=== PATIENT | female | born 1955 | race Caucasian/White ===

== ENCOUNTER → 2020-03-07 08:27 | Outpatient (CLI) | payer OTHER, SELFPAY | PROVIDERS: PCP Family Medicine; Visit Provider Internal Medicine | DX: Z11.52 Encounter for screening for COVID-19 (principal) | CPT/HCPCS: U0003 ==

== ENCOUNTER 2023-09-15 19:04 | Inpatient (IN) | payer OTHER, MEDICARE, SELFPAY ==
[2023-09-15 19:13] VITALS: BP 177/87; PULSE 102; RESP 16; TEMP 36.8; O2SAT 96; BMI 30.7
--- OUTSIDE RECORDS SUMMARY | 2023-09-15 19:19 | XMS_ITS | Continuity of Care Document ---
Author Name Unknown Organization [facility] Address [address] [place] [address] Phone Care Team Providers Care Senior Software Qa Analyst Name Role Phone No Information Unavailable Unavailable Allergies, Adverse Reactions, Alerts Substance Reaction Status Criticality NITROFURANTOIN MACROCRYSTALLINE Active No Information Sulfa (Sulfonamide Antibiotics) Active No Information Penicillins Active No Information Medications Medication Instructions Dosage Effective Dates (start - stop) Status Comments No Drug Therapy Prescribed Procedures Procedure Date Physical Tx excercises, ea 15 min Neuromuscular re-edu, ea15 min 19 Physical Tx excercises, ea 15 min Neuromuscular re-edu, ea15 min 19 PT RE-EVAL EST PLAN CARE Physical Tx excercises, ea 15 min Neuromuscular re-edu, ea15 min 19 Physical Tx excercises, ea 15 min Neuromuscular re-edu, ea15 min 19 Manual therapy 1+ regions, ea 15 mn Physical Tx excercises, ea 15 min Neuromuscular re-edu, ea15 min 19 Office/outpatient visit,est, low 2018 X-ray exam of knee, 1 or2 views 019 Physical Tx excercises, ea 15 min Neuromuscular re-edu, ea15 min 19 PT EVAL LOW COMPLEX 20 MIN Neuromuscular re-edu, ea15 min 19 Manual therapy 1+ regions, ea 15 mn Office/outpatient visit,new, mod 2018 MRI Lwr Ext Joint wo Contrast 9 Office/outpatient visit,day [facility] 2018 X-ray exam of knee, 4+ views Breg Crossover/Short Run w Gino 019 Crutch underarm pair no wood Advance Directives Directive Yes / No Effective Date File Name No Information Encounters Encounter Description Practice Location Reason(s) For Visit Diagnoses Date Provider Providers Copied on Encounter [facility] [address], [facility], tel:[phone] No Information 2 No Information [facility] [address], [facility], tel:[phone] [facility] Sprain of unspecified ligament of right ankle, init encntrPain in right ankle and joints of right foot 2 Meng Carpenter. [address] [place] [address], [id number]. tel:[phone] Referring Provider: Jayden Butt, [address] [place], [address] . tel:[phone] [facility] [address], [facility], tel:[phone] [facility] No Information 9 Gauri Patterson. [address] [place], [place], [facility], . tel:[phone] Referring Provider: Jayden Butt, [address] [place], [address] . tel:[phone] [facility] [address], [facility], tel:[phone] [facility] No Information 9 Gauri Patterson. [address] [place], [place], [facility], . tel:[phone] Referring Provider: Jayden Butt, [address], [place], [address] . tel:[phone] [facility] [place], [address], [place], [facility], tel:[phone] [facility] No Information Mar-2 1-201 9 Blairhn Yesenia. [address] [place], [place], [facility], . tel:[phone] Referring Provider: Jayden Butt, [address], [place], [address] . tel:[phone] [facility], [address], [place], [facility], tel:[phone] [facility] No Information Mar-1 4-201 9 Gauri Yesenia. [address] [place], [place], [facility], . tel:[phone] Referring Provider: Jayden Fan Daquan, [address], [place], [address] . tel:[phone] [facility], [address], [place], [facility], tel:[phone] [facility] No Information Mar-0 7-201 9 Gauri Yesenia. [address] [place], [address], . tel:[phone] Referring Provider: Jayden Butt, [address], [place], [address] . tel:[phone] Office/outpat ient visit,est, low [facility], [address], [place], [facility], [place] tel:[phone] [facility] No Information Mar-0 1-201 9 Meng Carpenter. [address], [place], [place], [id number]. tel:[phone] [facility], [address], [place], [address], [place] tel:[phone] [facility] No Information Blairjustyna Yesenia. [address] [place] [address], [facility], . tel:[phone] Referring Provider: Jayden Butt, [address], [place], [address] . tel:[phone] [facility], [address], [place], [facility], tel:[phone] [facility] No Information Blairjustyna Yesenia. [address] [place] [address], [facility], . tel:[phone] Referring Provider: Jayden Butt, [address], [facility], [address] . tel:[phone] Office/outpat ient visit,[facility], [facility], [address], [place], [facility], [place] tel:[phone] [address] [place] [address] No Information 9 Meng Carpenter. [address], [place], [place], [id number]. tel:[phone] Referring Provider: Michael Jaramillo, [address] [place] [address], [facility]. tel:[phone] [facility], [address], [place], [facility], [place] tel:[phone] [facility] No Information 9 Severo Rodriguez. [address], [place], [place], [id number], [place]. tel:[phone] Referring Provider: Michael Trujillo, [address], [facility], [address] . tel:[phone] Office/outpat ient visit,new, [facility], [address], [place], [address], [place] tel:[phone] 700 [facility] No Information 9 Clint Rodriguez. [address] [facility], [place], [address], [place]. tel:[phone] [facility], [address] [place], [address], [place] tel:[phone] [facility] No Information 9 Severo Rodriguez. [address], [place], [id number], [place]. tel:[phone] Family History Family Member Type Diagnosis Age At Onset Mother Problem (finding) hypertension Mother Problem (finding) Cancer, unknown Father Problem (finding) Heart disease Payers Payer name Insurance type Covered libertarian ID Glo walden(s) C [id number] Social History Type Description Quantity Date Captured Comments Sex Female Smoking Status No Information Chief Complaint And Reason For Visit No Information Reason For Referral Reason For Referral No Information Plan Of Treatment Date Type Action Status Future Order: Radiology Order MR I Knee WO Contrast ([id number]), Collected on: , Sent on: Sent History Of Present Illness Encounter Date Complaint History Of Prese nt Illness No Information Functional Status Date Functional Assessmen t No Information Medications Administered Medication Instructions Dosage Effective Dates (start - stop) Status Comments No Drug Therapy Prescribed Instructions Date Instruction Additional Infor mation No Information Assessments Type Assessment Date No Information Patient Care Teams Name Effective Dates (start - stop) Status Members No Information
[2023-09-15 19:35] VITALS: BP 159/89; PULSE 91; O2SAT 96
[2023-09-15 19:39] LABS: Microscopic, Urine URINE MICROSCOPIC (MICROSCOPIC)
[2023-09-15 19:43] LABS: Appearance,Urine CLEAR (Clear); Bilirubin,Urine Negative (Negative); Blood, Urine TRACE-I (Negative); Color,Urine YELLOW (Yellow); Glucose,Urine (UA) Negative (Negative); Ketones,Urine Negative (Negative); Leukocyte Esterase,Urine Negative (Negative); Nitrate,Urine Negative (Negative); PH,Urine 7.5 (5.0-8.5); Protein,Urine Negative (Negative); Urobilinogen,Urine 0.2 EU/dl (0.2)
[2023-09-15 19:43] LABS: Basophils # 0.1 K/mm3 (0-0.2); Basophils % 0.6 % (0.1-2.0); Eosinophils # 0.1 K/mm3 (0.0-0.4); Eosinophils % 0.9 % (0.1-12.0); Hematocrit 36.1 % (37.0-47.0); Hemoglobin 13.4 g/dL (12.2-16.2); Lymphocytes # 1.5 K/mm3 (0.7-4.5); Lymphocytes % 14.5 % (10-50); Mean Corpuscular HGB Conc 37.2 g/dL (31.8-35.4); Mean Corpuscular Hemoglobin 34.5 pg (27.0-31.2); Mean Corpuscular Volume 92.8 fl (81-99); Monocytes # 0.4 K/mm3 (0.1-1.0); Monocytes % 3.6 % (1.7-9.3); Neutrophils # 8.3 K/mm3 (1.8-7.8); Neutrophils % 80.5 % (37.0-80.0); Platelet Count 192 K/mm3 (142-424); Red Blood Count 3.89 M/mm3 (4.20-5.40); Red Cell Distribution Width 14.4 % (11.5-17.5); White Blood Count 10.3 K/mm3 (4.8-10.8)
[2023-09-15 19:44] LABS: Chloride 107 mmol/L (98-107); Sodium 141 mmol/L (136-145)
[2023-09-15 19:45] LABS: Potassium 3.5 mmoL/L (3.5-5.1)
[2023-09-15 19:47] LABS: Alanine Aminotransferase 22 U/L (12-78); Albumin Level 4.1 g/dl (3.5-5.0); Albumin/Globulin Ratio 1.5 (1.1-1.8); Alkaline Phosphatase 87 U/L (38-126); Anion Gap 8.5 mEq/L (5-15); Aspartate Amino Transferase 26 U/L (14-36); Bilirubin,Total 0.4 mg/dl (0.2-1.3); Blood Urea Nitrogen 14 mg/dl (7-17); Calcium 9.1 mg/dl (8.4-10.2); Carbon Dioxide 29 mmol/L (22.0-30.0); Creatinine Clearance Estimated 75 mL/min (50-200); Estimated Glomerular Filt Rate 100 ml/min (>60); GFR (African American) 121 ML/MIN (>60); Globulin 2.7 g/dL (1.3-3.2); Glucose 96 mg/dl (74-100); Lactic Acid 1.2 mmol/L (0.7-2.1); Total Protein,Serum 6.8 g/dl (6.3-8.2)
--- NOTE | 2023-09-15 19:55 | CT_ITS ---
PROCEDURE INFORMATION: Exam: CT Abdomen And Pelvis With Contrast Exam date and time: 09/15/2023 8:11 PM Age: 68 years old Clinical indication: Abdominal pain; Additional info: Swallowed retainer wire on Saturday TECHNIQUE: Imaging protocol: Computed tomography of the abdomen and pelvis with contrast. Total images: 338 Radiation optimization: All CT scans at this facility use at least one of these dose optimization techniques: automated exposure control; mA and/or kV adjustment per patient size (includes targeted exams where dose is matched to clinical indication); or iterative reconstruction. Contrast material: ISOVUE; Contrast volume: 75 ml; Contrast route: IV; COMPARISON: No relevant prior studies available. FINDINGS: Lungs: Mild bibasilar dependent atelectasis. Heart: Normal heart size. Diaphragm: Small hiatal hernia. Liver: 12 mm indeterminate hepatic hypodensity near the hepatic vein confluence, axial image 17 series 3. Additional 16 mm indeterminate subcapsular hypodensity right hepatic lobe axial image 13 series 3. Gallbladder and biliary ducts: Normal. No calcified stones. No ductal dilation. Pancreas: Pancreatic atrophy with fatty interdigitation. No acute pancreatitis. Spleen: Calcified splenic granuloma. No splenomegaly. Adrenal glands: Normal. No mass. Kidneys and ureters: No hydronephrosis, nephrolithiasis, or renal mass. Stomach and bowel: Collapsed stomach. Unremarkable duodenum. No ileus or bowel obstruction. Mild colonic stool burden. Severe sigmoid diverticulosis. Moderate diverticulosis descending colon. No acute diverticulitis. Unremarkable rectum. 2.5 cm linear metallic foreign body within a loop of distal small bowel, axial image 109 and coronal image 30, and sagittal image 63. The foreign body appears to penetrate through the wall of the small bowel as shown on coronal image 30 and sagittal image 63. No adjacent extraluminal free air. Appendix: Normal appendix. Intraperitoneal space: No ascites. No free air. Vasculature: Abdominal aorta is tortuous but nonaneurysmal. Major abdominal vessels enhance appropriately. Lymph nodes: Unremarkable. No enlarged lymph nodes. Urinary bladder: Collapsed bladder. Reproductive: Physiologic uterus and ovaries. No adnexal mass. Bones/joints: Mild osteopenia. Mild degenerative changes thoracolumbar spine. No acute osseous abnormality. Soft tissues: Tiny fat containing umbilical hernia. Directly above the umbilicus is an additional small fat containing hernia. IMPRESSION: 1. 2.5 cm linear metallic foreign body within a loop of distal small bowel. Foreign body appears to penetrate through the wall of small bowel without adjacent extraluminal air. 2. Severe sigmoid diverticulosis. 3. Indeterminate hepatic hypodensities. Recommend follow-up nonemergent liver MRI. 4. Multiple additional chronic and incidental findings.
[2023-09-15 20:00] VITALS: BP 148/83; PULSE 94; RESP 18; O2SAT 97
--- NOTE | 2023-09-15 20:03 | HMH.EDGENADL ---
Discharge Plan Disposition Patient Disposition: Admitted Clinical Impressions Clinical Impression: Bowel perforation, Lesion of liver Discharge ED Provider: Vijay Hopper General Adult HPI General Chief complaint: Skin/Abscess/Foreign Body Stated complaint: swollen a wire from retainer 09-11-23 Time Seen by Provider: 09/15/23 19:42 Mode of Arrival: Ambulatory Source of Information: Patient Limitations: No Limitations Description of Symptoms (Recalled from ER Triage Doc. by RN): PT STATES WHILE SHE WAS EATING DINNER WED. NIGHT SHE SWALLOWED HER LOWER PERMANENT RETAINER. IT WAS A SMALL METAL WIRE. PT STATES SHE HAS NOT CHECKED HER FECES TO SEE IF IT HAS PASS. SHE HAS CONTINUED TO HAVE NORMAL BMS. PT STATES SHE STARTED HAVING LOWER MIDDLE ABD PAIN TODAY. SHE STATES THE PAIN IS SIMILAR TO HER DIVERTICULITIS FLAIR UPS. PT STATES HER PAIN IS 4/10 History of Present Illness HPI narrative: Patient is a 68-year-old female with no abdominal surgical history, no comorbidities, previous diverticulitis who presents emergency department for evaluation of abdominal pain. She has an inferior retainer which is a wire lining in the inside of her mandibular teeth which she inadvertently swallowed while eating. She had onset of abdominal pain today that has worsened that is generalized and not localizable. No vomiting, normal stooling. Due to persistent symptoms she presents here for continued evaluation. Related Data Allergies Allergy/AdvReac Type Severity Reaction Status Date / Time nitrofurantoin Allergy Swelling/Ra Verified 09/15/23 19:36 [From Macrobid] sh Penicillins Allergy Swelling Verified 09/15/23 19:36 Rash Sulfa (Sulfonamide Allergy Swelling/Ra Verified 09/15/23 19:36 Antibiotics) [facility] Disclaimer: The information contained in this section may have been updated after the patient was seen, as this information can be updated by other users. Social History (Updated 09/15/23 @ 23:20 by Anthony Barnes MD) Smoking Status: Never smoker alcohol intake: former current occupational status: employed Travel in the last 8 weeks: None ROS Obtained: Yes Systems reviewed as appropriate & no additional complaints except as documented Physical Exam General General appearance: alert and in no apparent distress Head Head exam: atraumatic and normocephalic Eye Eye exam: Present PERRL ENT ENT exam: Present mucous membranes moist Neck Neck exam: Present normal inspection Chest Chest inspection: Present normal inspection and symmetric chest wall rise Respiratory Respiratory exam: Present normal lung sounds bilaterally; Absent respiratory distress Cardiovascular Cardiovascular exam: Present regular rate and normal rhythm Abdominal Exam Abdominal exam: Present soft and tenderness (Diffuse, mild); Absent guarding, rebound or rigidity Extremities Exam Extremities exam: Present normal inspection Neurological Exam Neurological exam: Present alert Psychiatric Psychiatric exam: Present normal affect Skin Skin exam: Present warm and dry Medical Decision Making Mike Inquiry Pt receiving controlled substance: No Vital Signs: 09/15/23 19:13 09/15/23 19:35 09/15/23 20:00 Temperature 98.3 F Temperature Source Oral Pulse Rate 91 H 94 H Pulse Rate [Right] 102 H Respiratory Rate 16 18 Blood Pressure 159/89 H 148/83 H Blood Pressure [Right Arm] 177/87 H Blood Pressure Mean Blood Pressure Mean [Right Arm] 117 Blood Pressure Source [Right Arm] Automatic Cuff Blood Pressure Position [Right Arm] Sitting 02 Sat by Pulse Oximetry 96 96 97 Oxygen Delivery Method Room Air Room Air Room Air 09/15/23 20:30 09/15/23 21:00 09/15/23 23:09 Temperature 97.8 F Temperature Source Oral Pulse Rate 96 H 94 H 81 Pulse Rate [Right] Respiratory Rate 16 17 20 Blood Pressure 147/74 H 162/81 H 147/74 H Blood Pressure [Right Arm] Blood Pressure Mean 98 99 Blood Pressure Mean [Right Arm] Blood Pressure Source [Right Arm] Blood Pressure Position [Right Arm] 02 Sat by Pulse Oximetry 97 98 Oxygen Delivery Method Room Air Room Air Room Air Lab Data Lab Results 09/15/23 19:22: WBC 10.3, RBC 3.89 L, Hgb 13.4, Hct 36.1 L, MCV 92.8, MCH 34.5 H, MCHC 37.2 H, RDW 14.4, Plt Count 192, MPV 9.0, Neut % (Auto) 80.5 H, Lymph % (Auto) 14.5, [place] % (Auto) 3.6, Eos % (Auto) 0.9, Baso % (Auto) 0.6, Neut # (Auto) 8.3 H, Lymph # (Auto) 1.5, [place] # (Auto) 0.4, Eos # (Auto) 0.1, Baso # (Auto) 0.1, Sodium 141, Potassium 3.5, Chloride 107, Carbon Dioxide 29, Anion Gap 8.5, BUN 14, Creatinine 0.60, Estimated Creat Clear 75, Estimated GFR 100, Est GFR ( Amer) 121, Glucose 96, Lactate 1.2, Calcium 9.1, Total Bilirubin 0.4, AST 26, ALT 22, Alkaline Phosphatase 87, Total Protein 6.8, Albumin 4.1, Globulin 2.7, Albumin/Globulin Ratio 1.5 09/15/23 19:32: Urine Color Yellow, Urine Appearance Clear, Urine pH 7.5, Ur Specific [place] 1.020, Urine Protein Negative, Urine Glucose (UA) Negative, Urine Ketones Negative, Urine Blood Trace-i, Urine Nitrate Negative, Urine Bilirubin Negative, Urine Urobilinogen 0.2, Ur Leukocyte Esterase Negative, Urine RBC 3-5, Urine WBC None, Ur Squamous Epith Cells 5-10, Urine Bacteria None 09/15/23 19:22 09/15/23 19:22 Orders (Tests/Meds): ED MEDICATIONS Discontinued Medications Generic Name Dose Route Start Last Admin Trade Name Freq PRN Reason Stop Dose Admin Iopamidol 75 ml 09/15/23 20:10 09/15/23 20:12 Iopamidol-370 (76%);100ml Bottle IV 09/15/23 20:11 75 ml ONCE ONE Administration Sodium Chloride 10 ml 09/15/23 20:10 09/15/23 20:11 Sodium Chloride 0.9% 10ml Syr (Rad Only) IV 09/15/23 20:11 10 ml ONCE ONE Administration ORDERS Category Date Time Status CT abdomen pelvis w con Stat Cat Scan 09/15/23 19:55 Completed Complete Blood Count Auto Diff Stat Lab 09/15/23 19:22 Completed Comprehensive Metabolic Panel Stat Lab 09/15/23 19:22 Completed Lactic Acid Stat Lab 09/15/23 19:22 Completed Urinalysis and Microscopic Stat Lab 09/15/23 19:32 Completed Medical Decision Narrative: In summary patient is a 68-year-old female past medical history described above who presents emergency department for evaluation of inadvertent retained wire ingestion with diffuse abdominal pain. Patient is hemodynamically stable nontoxic-appearing upon arrival, afebrile, slight tachycardia. Patient will immediately undergo CT scan. Differential includes wire intruding into hollow viscus, urinary tract infection, diverticulitis, among others. Workup be conducted with hematologic labs, urinalysis, CT scan. Initial inventions include morphine, IV Tylenol, Zofran, crystalloid bolus. Initial workup reviewed by me, hematologic labs are largely nonactionable, no leukocytosis, no JEREMY or critical electrolyte abnormality. Urinalysis not consistent with infection. ET imaging informally interpreted by me, there appears to be metallic foreign body in the small bowel. Formal CT read shows 2.5 cm linear metallic foreign body within the loop of distal small bowel, foreign body appears to penetrate through the wall of small bowel without adjacent extraluminal air. Zosyn will be administered. There are indeterminate hepatic hypodensities for which outpatient follow-up is needed. Case was discussed with surgeon on-call given perforated hollow viscus patient will be taken to the OR for definitive management at this time. Critical Care Critical Care Time Critical Care Time: Yes Attestation: On 09/15/23, the high probability of a clinically significant, sudden or life threatening deterioration of the following system(s) required my full and direct attention, intervention and personal management. The time I documented below is in addition to time spent performing reported procedures but includes the following listed in this critical care notation. Total Time Total Critical Care Time: 40
[2023-09-15] MEDS: SODIUM CHLORIDE 0.9% 10ML SYR (RAD ONLY) 10 ML IV (20:11)
[2023-09-15] MEDS: IOPAMIDOL-370 (76%);100ML BOTTLE 75 ML IV (20:12)
[2023-09-15 20:30] VITALS: BP 147/74; PULSE 96; RESP 16; O2SAT 97
[2023-09-15 21:00] VITALS: BP 162/81; PULSE 94; RESP 17; O2SAT 98
--- NOTE | 2023-09-15 22:08 | PC.NURSE ---
I noted the CT had resulted and there is a critical finding with the wire perforating the small bowel. Dr. Hopper notified of these findings. [facility] has not called with result findings.
--- NOTE | 2023-09-15 22:14 | PC.NURSE ---
Dr Barnes coming in to take patient for OR procedure
--- NOTE | 2023-09-15 22:46 | PC.NURSE ---
Dr. Barnes at bedside seeing patient
[2023-09-15 23:09] VITALS: BP 147/74; PULSE 81; RESP 20; TEMP 36.6; O2SAT 96
--- NOTE | 2023-09-15 23:16 | P.HP_ITS ---
HPI HPI HPI: 68-year-old lady presents with abdominal pain for the last 24 hours. She states that about a week ago she was eating a sandwich and dislodged her permanent lower retainer. She swallowed it and thought it would pass with time. She developed the pain today that was unrelenting in her lower abdomen and was concerned and came to the hospital. [facility] Disclaimer: The information contained in this section may have been updated after the patient was seen, as this information can be updated by other users. Social History Smoking Status: Never smoker alcohol intake: former current occupational status: employed Travel in the last 8 weeks: None Review of Systems Review of Systems Review of systems:: pertinent systems reviewed and negative unless documented below Meds Home Medications and Allergies New Prescriptions to Start Prescriptions: Allergies Allergy/AdvReac Type Severity Reaction Status Date / Time nitrofurantoin Allergy Swelling/Ra Verified 09/15/23 19:36 [From Macrobid] sh Penicillins Allergy Swelling Verified 09/15/23 19:36 Rash Sulfa (Sulfonamide Allergy Swelling/Ra Verified 09/15/23 19:36 Antibiotics) sh Exam Data for Last 24 hours Vital signs and Labs for Last 24 Hours: Temp Pulse Resp BP Pulse Ox O2 Del Method 97.8 F 81 20 147/74 H 98 Room Air 09/15/23 23:09 09/15/23 23:09 09/15/23 23:09 09/15/23 23:09 09/15/23 21:00 09/15/23 23:09 Laboratory Results - last 24 hr 09/15/23 19:22: WBC 10.3, RBC 3.89 L, Hgb 13.4, Hct 36.1 L, MCV 92.8, MCH 34.5 H , MCHC 37.2 H, RDW 14.4, Plt Count 192, MPV 9.0, Neut % (Auto) 80.5 H, Lymph % (Auto) 14.5, [place] % (Auto) 3.6, Eos % (Auto) 0.9, Baso % (Auto) 0.6, Neut # (Auto) 8.3 H, Lymph # (Auto) 1.5, [place] # (Auto) 0.4, Eos # (Auto) 0.1, Baso # (Auto) 0.1, Sodium 141, Potassium 3.5, Chloride 107, Carbon Dioxide 29, Anion Gap 8.5, BUN 14, Creatinine 0.60, Estimated Creat Clear 75, Estimated GFR 100, Est GFR ( Amer) 121, Glucose 96, Lactate 1.2, Calcium 9.1, Total Bilirubin 0.4, AST 26, ALT 22, Alkaline Phosphatase 87, Total Protein 6.8, Albumin 4.1, Globulin 2.7, Albumin/Globulin Ratio 1.5 09/15/23 19:32: Urine Color Yellow, Urine Appearance Clear, Urine pH 7.5, Ur Specific [place] 1.020, Urine Protein Negative, Urine Glucose (UA) Negative, Urine Ketones Negative, Urine Blood Trace-i, Urine Nitrate Negative, Urine Bilirubin Negative, Urine Urobilinogen 0.2, Ur Leukocyte Esterase Negative, Urine RBC 3-5, Urine WBC None, Ur Squamous Epith Cells 5-10, Urine Bacteria None I & O for Last 24 hours: Intake & Output 09/12/23 09/13/23 09/14/23 09/15/23 23:59 23:59 23:59 23:59 Weight 190 lb Constitutional Constitutional: no acute distress *Routine HEENT Exam Head: Present normocephalic Eye: Present EOMI ENT: Present mucous membranes moist *Routine Neck Exam Neck: Present supple *Routine Respiratory Exam Respiratory: Absent accessory muscle use *Routine Cardiovascular Exam Cardiovascular: Present RRR *Routine Abdominal Exam Abdominal: Present soft, tenderness and guarding; Absent normoactive bowel sounds *Routine Rectal Exam Rectal:: deferred *Routine Genitalia Exam Genitalia:: deferred Results Results Lab Results Last 24 Hours:: Laboratory Results - last 24 hr 09/15/23 19:22: WBC 10.3, RBC 3.89 L, Hgb 13.4, Hct 36.1 L, MCV 92.8, MCH 34.5 H , MCHC 37.2 H, RDW 14.4, Plt Count 192, MPV 9.0, Neut % (Auto) 80.5 H, Lymph % (Auto) 14.5, [place] % (Auto) 3.6, Eos % (Auto) 0.9, Baso % (Auto) 0.6, Neut # (Auto) 8.3 H, Lymph # (Auto) 1.5, [place] # (Auto) 0.4, Eos # (Auto) 0.1, Baso # (Auto) 0.1, Sodium 141, Potassium 3.5, Chloride 107, Carbon Dioxide 29, Anion Gap 8.5, BUN 14, Creatinine 0.60, Estimated Creat Clear 75, Estimated GFR 100, Est GFR ( Amer) 121, Glucose 96, Lactate 1.2, Calcium 9.1, Total Bi lirubin 0.4, AST 26, ALT 22, Alkaline Phosphatase 87, Total Protein 6.8, Albumin 4.1, Globulin 2.7, Albumin/Globulin Ratio 1.5 09/15/23 19:32: Urine Color Yellow, Urine Appearance Clear, Urine pH 7.5, Ur Specific [place] 1.020, Urine Protein Negative, Urine Glucose (UA) Negative, Urine Ketones Negative, Urine Blood Trace-i, Urine Nitrate Negative, Urine Bilirubin Negative, Urine Urobilinogen 0.2, Ur Leukocyte Esterase Negative, Urine RBC 3-5, Urine WBC None, Ur Squamous Epith Cells 5-10, Urine Bacteria None CT scan - abdomen: report reviewed and image reviewed (Concur with report that there is a perforated foreign body in the distal ileum with a small amount of free air and fluid) Assessment and Plan *Assessment and plan (1) Bowel perforation: Problem Comment: Perforation from swallowed foreign body. The patient has free fluid and a small amount of free air. Status: Acute Category: Medical Code(s): K63.1 - Perforation of intestine (nontraumatic) Plan: I would recommend laparoscopic exam with possible laparotomy and bowel resection. Risk of bleeding, infection, injury, anesthetic, and need for further surgery were discussed with the patient and she agrees to proceed.
[2023-09-15] MEDS: CLINDAMYCIN PHOSPHATE/D5W 900 MG/50 ML PIGGYBACK 50 MG (23:58)
[2023-09-15] MEDS: BUPIVACAINE 0.5% 30ML VIAL 150 MG (23:59)
[2023-09-16] VITALS (24 sets, daily range): BP systolic 130–182; BP diastolic 71–106; PULSE 78–117; RESP 12–20; TEMP 36.4–36.7; O2SAT 86–98; BMI 34.0
--- NOTE | 2023-09-16 00:43 | P.OP_ITS ---
Date of procedure: 09/16/23 Pre-op Diagnosis:: Bowel perforation from foreign body Post-op Diagnosis:: Small bowel perforation from foreign body Procedure performed:: Diagnostic laparoscopy with open small bowel resection Surgeon:: Anthony Barnes MD Gum Rolling Machine Tender(s):: Zari CIGARET[employer] CARTON SEALER:: Chelsey Gonzalez Anesthesia: GETA Estimated blood loss (mL): 30 Operative findings:: Mid jejunal perforation with associated serositis and purulence. Operative note:: Patient was taken to the operating room and placed in the supine position. General anesthesia was instituted without complication. The abdomen was prepped and draped in usual sterile fashion and a brief surgical pause was performed. I began the procedure with a left upper quadrant 5 mm port incision. Using a 5 mm Optiview I entered the abdomen atraumatically under direct visualization and insufflated to 15 mmHg. I then placed 2 more ports 1 suprapubic and 1 in the left lower quadrant 5 mm apiece. I began at the terminal ileum at the ileocecal valve and ran the small intestine proximal. In the mid jejunum she had an area of serositis and perforation with purulence and an exposed metal foreign body. I grasped this area with a 5 mm grasper. I then made an infraumbilical incision and exteriorized the small intestine here. I decided to perform a bowel resection secondary to the serositis and purulence. Using a 75 JUDAH I divided the bowel proximal and distal to the perforation. I then divided the mesentery between clamps and ties. I then performed a [id number] stapled anastomosis with a handsewn common enterotomy in 2 layers. First layer was 3-0 Vicryl and the second layer was 3-0 Nurolon. Oversewed the staple lines with 3-0 Nurolon in Lembert fashion. I then reduced the small intestine and closed the fascia with 0 Vicryl in [id number] fashion. The skin was irrigated and closed with a layer of 3-0 Vicryl and 4-0 Vicryl. I reinsufflated of the abdomen and examined the anastomosis. The posterior level of the fascia and peritoneum had a small trickle of blood. This was cauterized for hemostasis. The 5 mm ports were removed and the skin was closed with 4-0 Vicryl and Dermabond. She tolerated the procedure well was woken from anesthesia and transferred to the PACU in stable condition. Condition: stable Disposition: PACU Specimens:: Small intestine Complications:: None
--- NOTE | 2023-09-16 00:52 | P.PNANES_ITS ---
[facility] Disclaimer: The information contained in this section may have been updated after the patient was seen, as this information can be updated by other users. Social History (Updated 09/15/23 @ 23:20 by Anthony Barnes MD) Smoking Status: Never smoker alcohol intake: former substance use type: denies use current occupational status: employed Travel in the last 8 weeks: None [facility] [place] Anesthesia Checklist Patient Identification Patient Identification: Arm Band and Verbal (Name & ) Structural Data Admitted From: Emergency Dept ([facility]) Planned Operative Procedure/s: Dx laparoscopy; poss. SBR Consent for Planned Operative Procedure(s) Verified: Yes Verified Documents: Surgical Consent and History and Physical NPO Status Verified Time NPO: 19:00 Chart Verification Results Verified: CBC and BMP Additional verifications Patient : No Anesthesia Reactions: No Cardiovascular Assessment Heart Sounds: S1 & S2 Pulse Rhythm: Irregular Peripheral Edema: No Airway Assessment Mallampati Score:: Class III (VERY small mouth opening) C-Spine Mobility Assessed: Yes (FROM) TMJ Mobility Assessed: Yes Dentition: Poor Dentition (Nothing loose per pt.) Neurological Assessment Level of Consciousness: Awake, Alert, Appropriate and Follows Commands Hx Seizures: No Numbness or tingling in extremities: No Anesthesia Plan Anesthesia Risk discussed: Yes Anesthesia Plan: Verified ASA Class: II Anesthesia Type: General
--- NOTE | 2023-09-16 01:01 | P.PNANES_ITS ---
[facility] Anesthesia Record Part I Anesthesia Record I Intake, IV Amount: 850 Hydration: Adequate Estimated blood loss (mL): 25 Urine output (mL): 0 Blood Products used (#): none Blood Pressure: 165/74 SaO2: 94 Pulse Rate: 110 Airway Patency: Patent Respiratory Rate: 16 Temperature: 97.6 F Patient is:: Awake (Talking), Mask O2 (6L/min) and Stable Stable to PACU at:: 00:50
--- NOTE | 2023-09-16 01:20 | EXP.MED.CON ---
Documented by User: Marina Caldera, PILAR 09/16/23 02:16 History of Present Illness *Admission Date: 09/15/23 *Reason for visit:: Abdominal pain *History of present illness: Ira Flores is a 68-year-old lady with PMH significant for diverticulitis who presented to the emergency room this evening with abdominal pain. Pt states for the last 24 hours. She states that about a week ago she was eating a sandwich and dislodged her permanent lower retainer. She swallowed it and thought it would pass with time. She developed abdominal pain today that continued to worsen throughout the day. States is felt like a prior episode of her diverticulitis flare up. Has not had any prior abdominal surgeries. Denies any fever, cough, chest pain, shortness of breath, bowel or bladder dysfunction. No bloody stools/melena. No focal neuro deficits. Denies any swelling in her legs or feet. Does not take any blood thinners. Lab work in the ER was essentially unremarkable, hematologic labs are largely nonactionable, no leukocytosis, no JEREMY or critical electrolyte abnormality. CT of the abdomen pelvis showed 2.5 cm linear metallic foreign body within the loop of distal small bowel, foreign body appears to penetrate through the wall of small bowel without adjacent extraluminal air. She was given zosyn and general surgery was consulted. She was taken to the OR for an ex lap. Hospital medicine was asked to consult for medical management. [facility] Disclaimer: The information contained in this section may have been updated after the patient was seen, as this information can be updated by other users. Social History (Updated 09/16/23 @ 00:55 by Chelsey Gonzalez CRNA) Smoking Status: Never smoker alcohol intake: former substance use type: denies use current occupational status: employed Travel in the last 8 weeks: None Review of Systems Review of Systems Review of systems:: pertinent systems reviewed and negative unless documented below *Gastrointestinal Gastrointestinal: Reports abdominal pain Exam Data for Last 24 hours Vital signs and Labs for Last 24 Hours: Temp Pulse Resp BP Pulse Ox O2 Del Method O2 Flow Rate 97.5 F L 92 H 18 182/100 H 97 Room Air 3 09/16/23 01:15 09/16/23 01:15 09/16/23 01:15 09/16/23 01:15 09/16/23 01:15 09/16/23 01:15 09/16/23 01:05 Laboratory Results - last 24 hr 09/15/23 19:22: WBC 10.3, RBC 3.89 L, Hgb 13.4, Hct 36.1 L, MCV 92.8, MCH 34.5 H, MCHC 37.2 H, RDW 14.4, Plt Count 192, MPV 9.0, Neut % (Auto) 80.5 H, Lymph % (Auto) 14.5, [place] % (Auto) 3.6, Eos % (Auto) 0.9, Baso % (Auto) 0.6, Neut # (Auto) 8.3 H, Lymph # (Auto) 1.5, [place] # (Auto) 0.4, Eos # (Auto) 0.1, Baso # (Auto) 0.1, Sodium 141, Potassium 3.5, Chloride 107, Carbon Dioxide 29, Anion Gap 8.5, BUN 14, Creatinine 0.60, Estimated Creat Clear 75, Estimated GFR 100, Est GFR ( Amer) 121, Glucose 96, Lactate 1.2, Calcium 9.1, Total Bilirubin 0.4, AST 26, ALT 22, Alkaline Phosphatase 87, Total Protein 6.8, Albumin 4.1, Globulin 2.7, Albumin/Globulin Ratio 1.5 09/15/23 19:32: Urine Color Yellow, Urine Appearance Clear, Urine pH 7.5, Ur Specific [place] 1.020, Urine Protein Negative, Urine Glucose (UA) Negative, Urine Ketones Negative, Urine Blood Trace-i, Urine Nitrate Negative, Urine Bilirubin Negative, Urine Urobilinogen 0.2, Ur Leukocyte Esterase Negative, Urine RBC 3-5, Urine WBC None, Ur Squamous Epith Cells 5-10, Urine Bacteria None I & O for Last 24 hours: Intake & Output 09/13/23 09/14/23 09/15/23 09/16/23 23:59 23:59 23:59 23:59 Intake Total 850 / 850 Balance 850 / 850 Weight 86.183 kg *Routine HEENT Exam Head: Present normocephalic and atraumatic Eye: Present EOMI and PERRL ENT: Present mucous membranes moist *Routine Neck Exam Neck: Present supple *Routine Respiratory Exam Respiratory: Present CTA bilaterally *Routine Cardiovascular Exam Cardiovascular: Present RRR, Normal S1 and Normal S2 *Routine Abdominal Exam Abdominal: Present soft Comments: hypoactive bowel sounds, incisions are well approximated and without drainage *Routine Rectal Exam Patient deferred: visual exam and digital exam *Routine Exam Patient deferred: external exam *Routine Extremities Exam Extremities: Present pulses intact and normal capillary refill *Routine Skin Exam Skin: Present intact *Routine Neurological Exam Neurological: Present alert and oriented X3 Meds Home Medications and Allergies Home Medications Medication Instructions Recorded Confirmed Type No Known Home Medications 09/16/23 09/16/23 History New Prescriptions to Start Prescriptions: Allergies Allergy/AdvReac Type Severity Reaction Status Date / Time nitrofurantoin Allergy Swelling/Ra Verified 09/15/23 19:36 [From Macrobid] sh Penicillins Allergy Swelling Verified 09/15/23 19:36 Rash Sulfa (Sulfonamide Allergy Swelling/Ra Verified 09/15/23 19:36 Antibiotics) sh Results Labs 09/15/23 19:22 09/15/23 19:22 Labs: Abnormal lab results 09/15/23 Range/Units 19:22 RBC 3.89 L (4.20-5.40) M/mm3 Hct 36.1 L (37.0-47.0) % MCH 34.5 H (27.0-31.2) pg MCHC 37.2 H (31.8-35.4) g/dL Neut % (Auto) 80.5 H (37.0-80.0) % Neut # (Auto) 8.3 H (1.8-7.8) K/mm3 H & H 09/15/23 Range/Units 19:22 Hgb 13.4 (12.2-16.2) g/dL Hct 36.1 L (37.0-47.0) % All other labs normal. Assessment and Plan *Assessment and plan (1) Bowel perforation: Problem Comment: Perforation from swallowed foreign body. The patient has free fluid and a small amount of free air. Status: Acute Category: Medical Code(s): K63.1 - Perforation of intestine (nontraumatic) Plan Assessment: This is a 68 year old female who was admitted for a bowel perforation secondary to swallowing permanent wire retainer. On my exam, patient is post op, appears comfortable, in no acute distress. Incisions are C/D/I. Plan: Admit to [place] Bowel perforation -s/p ex lap -diet and bowel care per general surgery recs -Pain management as needed -activity as per General surg -continue clindamycin per General surg -Defer to General surg regarding DVT chemoprophylaxis, SCDs tonight DVT prophylaxis: SCDs Code status: Full code Surrogate decision maker: Omega [phone] Skin: low risk Documented by User: Bashir Hernandez MD 09/16/23 12:48 [facility] Social History (Updated 09/16/23 @ 00:55 by Chelsey Gonzalez CRNA) Smoking Status: Never smoker alcohol intake: former substance use type: denies use current occupational status: employed Travel in the last 8 weeks: None Meds Home Medications and Allergies Home Medications Medication Instructions Recorded Confirmed Type No Known Home Medications 09/16/23 09/16/23 History New Prescriptions to Start Prescriptions: Allergies Allergy/AdvReac Type Severity Reaction Status Date / Time nitrofurantoin Allergy Swelling/Ra Verified 09/15/23 19:36 [From Macrobid] sh Penicillins Allergy Swelling Verified 09/15/23 19:36 Rash Sulfa (Sulfonamide Allergy Swelling/Ra Verified 09/15/23 19:36 Antibiotics) Results Labs 09/15/23 19:22 09/15/23 19:22 Assessment and Plan *Assessment and plan (1) Bowel perforation: Problem Comment: Perforation from swallowed foreign body. The patient has free fluid and a small amount of free air. Status: Acute Category: Medical Code(s): K63.1 - Perforation of intestine (nontraumatic) Plan Assessment: This is a 68 year old female who was admitted for a bowel perforation secondary to swallowing permanent wire retainer. On my exam, patient is post op, appears comfortable, in no acute distress. Incisions are C/D/I. Plan: Admit to [place] Bowel perforation -s/p ex lap -diet and bowel care per general surgery recs -Pain management as needed -activity as per General surg -continue clindamycin per General surg -Defer to General surg regarding DVT chemoprophylaxis, SCDs tonight DVT prophylaxis: SCDs Code status: Full code Surrogate decision maker: Omega [phone] Skin: low risk Rounded on patient after nurse practitioner. Personally examined and interviewed patient. Agree with exam findings and care plan as documented. Patient appears stable. Has no significant past medical history. Appreciate the opportunity to assist with management. This patient has no medical needs, will defer all management to surgery. Please reconsult us if
[2023-09-16] MEDS: PROMETHAZINE HCL 25MG/ML 1ML VIAL 25 MG IM (01:26)
--- NOTE | 2023-09-16 01:45 | PC.NURSE ---
Patient arrived to floor via stretcher from surgery at 01:45.
[2023-09-16] MEDS: LACTATED RINGERS 1000ML 1,000 ML 100 ML IV ×2 (02:03→12:49)
[2023-09-16] MEDS: CLINDAMYCIN PHOSPHATE/D5W 900 MG/50 ML PIGGYBACK 100 MG IV ×2 (08:00→18:28)
--- OUTSIDE RECORDS SUMMARY | 2023-09-16 09:51 | XMS_ITS | Continuity of Care Document ---
Author Name Unknown Organization [facility] Address [address] [place] [address] Phone Care Team Providers Care Bar Back Name Role Phone No Information Unavailable Unavailable [...] Lwr Ext Joint wo Contrast 9 Office/outpatient visit,[facility] 2018 X-ray exam of knee, 4+ views Breg Crossover/Short Run w Gino 019 Crutch underarm pair no wood Advance Directives Directive Yes / No Effective Date File Name No Information Encounters Encounter Description Practice Location Reason(s) For Visit Diagnoses Date Provider Providers Copied on Encounter [facility] [address], [facility], tel:[phone] No Information 2 No Information [facility] [address], [facility], tel:[phone] [facility] Sprain of unspecified ligament of right ankle, init encntrPain in right ankle and joints of right foot 2 Meng Carpenter. [address] [place] [address], [id number]. tel:[phone] Referring Provider: Jayden Butt, [address] [place], [address] . tel:[phone] [facility] [address], [facility], tel:[phone] [facility] No Information 9 Gauri Patterson. [address] [place], [place], [facility], . tel:[phone] Referring Provider: Jayden Butt, [address] [place], [address] . tel:[phone] [facility] [address], [facility], tel:[phone] [facility] No Information 9 Gauri Patterson. [address] [place], [place], [facility], . tel:[phone] Referring Provider: Jayden Butt, [address], [place], [address] . tel:[phone] [facility] [place], [address], [place], [facility], tel:[phone] [facility] No Information Mar-2 1-201 9 Blairhn Yesenia. [address] [place], [place], [facility], . tel:[phone] Referring Provider: Jayden Butt, [address], [place], [address] . tel:[phone] [facility], [address], [place], [facility], tel:[phone] [facility] No Information Mar-1 4-201 9 Gauri Yesenia. [address] [employer] [place], [place], [facility], . tel:[phone] Referring Provider: Jayden Fan Daquan, [address], [place], [address] . tel:[phone] [facility], [address], [place], [facility], tel:[phone] [facility] No Information Mar-0 7-201 9 Gauri Yesenia. [address] [place], [address], . tel:[phone] Referring Provider: Jayden Butt, [address], [place], [address] . tel:[phone] Office/outpat ient visit,est, low [facility], [address], [place], [facility], [place] tel:[phone] [facility] No Information Mar-0 1-201 9 Meng Carpenter. [address], [place], [place], [id number]. tel:[phone] [facility], [address], [place], [address], [place] tel:[phone] [facility] No Information Blairjustyna Yesenia. [address] [place] [address], [facility], . tel:[phone] Referring Provider: Jayden Butt, [address], [place], [address] . tel:[phone] [facility], [address], [place], [facility], tel:[phone] [facility] No Information Blairjustyna Yesenia. [address] [place] [address], [facility], . tel:[phone] Referring Provider: Jayden Butt, [address], [facility], [address] . tel:[phone] Office/outpat ient visit,[facility], [facility], [address], [place], [facility], [place] tel:[phone] [address] [place] [address] No Information 9 Meng Carpenter. [address], [place], [place], [id number]. tel:[phone] Referring Provider: Michael Jaramillo, [address] [place] [address], [facility]. tel:[phone] [facility], [address], [place], [facility], [place] tel:[phone] [facility] No Information 9 Severo Rodriguez. [address], [place], [place], [id number], [place]. tel:[phone] Referring Provider: Michael Trujillo, [address], [facility], [address] . tel:[phone] Office/outpat ient visit,[place], [facility] [place] [facility], [address], [place], [address], [place] tel:[phone] 700 [facility] No Information 9 Clint Rodriguez. [address] [facility], [place], [address], [place]. tel:[phone] [facility], [address] [place], [address], [place] tel:[phone] [facility] No Information 9 Severo Rodriguez. [address] [place], [place], [id number], [place]. tel:[phone] Family History Family Member Type Diagnosis Age At Onset Mother Problem (finding) hypertension Mother Problem (finding) Cancer, unknown Father Problem (finding) Heart disease Payers Payer name Insurance type Covered constitution party ID Glo walden(s) C - [id number] Social History Type Description Quantity Date Captured Comments Sex Female Smoking Status No Information Chief Complaint And Reason For Visit No Information Reason For Referral Reason For Referral No Information Plan Of Treatment Date Type Action Status Future Order: Radiology Order MR I Knee WO Contrast ([id number]), Collected on: , Sent on: Sent History [...]
--- NOTE | 2023-09-16 11:03 | P.PNANES_ITS ---
[facility] Anesthesia Record Part II Anesthesia Record Part II Discharge Time: 01:15 Destination: Medical Surgical Department PACU nurse assessment reviewed?: Yes Patient Condition:: Good Anesthesia Complications:: None Swallowing reflex intact?: Yes Airway Patency: Patent Cyanosis?: No Blood Pressure: 182/100 SaO2: 97 Respiratory Rate: 18 Pulse Rate: 92 Temperature: 97.5 F Mental Status: Alert & Oriented Pain level:: 0 Nausea and/or vomitting:: None Intake, IV Amount: 850 Hydration: Adequate
[2023-09-16] MEDS: KETOROLAC 30MG/ML VIAL 15 MG IV ×2 (12:53→22:27)
--- NOTE | 2023-09-16 14:14 | EXP.SURG.PN ---
Subjective Narrative: Patient sleeping. No issues per nursing. Has had some Toradol for headache. Minimal abdominal pain. No nausea. Exam Data for Last 24 hours Vital signs and Labs for Last 24 Hours: Temp Pulse Resp BP Pulse Ox O2 Del Method O2 Flow Rate 98.0 F 98 H 18 148/80 H 95 Room Air 4 09/16/23 12:00 09/16/23 12:00 09/16/23 12:00 09/16/23 12:00 09/16/23 12:00 09/16/23 13:05 09/16/23 07:01 Laboratory Results - last 24 hr 09/15/23 19:22: WBC 10.3, RBC 3.89 L, Hgb 13.4, Hct 36.1 L, MCV 92.8, MCH 34.5 H, MCHC 37.2 H, RDW 14.4, Plt Count 192, MPV 9.0, Neut % (Auto) 80.5 H, Lymph % (Auto) 14.5, [place] % (Auto) 3.6, Eos % (Auto) 0.9, Baso % (Auto) 0.6, Neut # (Auto) 8.3 H, Lymph # (Auto) 1.5, [place] # (Auto) 0.4, Eos # (Auto) 0.1, Baso # (Auto) 0.1, Sodium 141, Potassium 3.5, Chloride 107, Carbon Dioxide 29, Anion Gap 8.5, BUN 14, Creatinine 0.60, Estimated Creat Clear 75, Estimated GFR 100, Est GFR ( Amer) 121, Glucose 96, Lactate 1.2, Calcium 9.1, Total Bilirubin 0.4, AST 26, ALT 22, Alkaline Phosphatase 87, Total Protein 6.8, Albumin 4.1, Globulin 2.7, Albumin/Globulin Ratio 1.5 09/15/23 19:32: Urine Color Yellow, Urine Appearance Clear, Urine pH 7.5, Ur Specific [place] 1.020, Urine Protein Negative, Urine Glucose (UA) Negative, Urine Ketones Negative, Urine Blood Trace-i, Urine Nitrate Negative, Urine Bilirubin Negative, Urine Urobilinogen 0.2, Ur Leukocyte Esterase Negative, Urine RBC 3-5, Urine WBC None, Ur Squamous Epith Cells 5-10, Urine Bacteria None I & O for Last 24 hours: Intake & Output 07/2009/15/23 09/16/23 09/17/23 11:59 11:59 11:59 11:59 Intake Total 2264 / 2264 Output Total 1000 / 1000 Balance 1264 / 1264 Weight 211 lb 6.4 oz Constitutional Constitutional: no acute distress Progress Note: A&P Assessment and plan (1) Bowel perforation: Problem details: Perforation from swallowed foreign body. The patient has free fluid and a small amount of free air. Status: Acute Assessment and plan: Continue n.p.o. for now. May have some ice chips.
--- NOTE | 2023-09-16 17:57 | PC.NURSE ---
VS stable, bowl sounds active. No nausea/vomiting reported by patient. Patient reported headache and mild pain in abdomen rating 3 out of 0-10 pain scale. Pain relieved with prn toradol. Patient tolerating ice chips well.
[2023-09-16] MEDS: PANTOPRAZOLE 40MG VIAL 40 MG IV (20:29)
[2023-09-16] MEDS: SODIUM CHLORIDE 0.9% 10ML VIAL 10 ML IV (20:29)
[2023-09-17] VITALS: BP 138/71; PULSE 83; RESP 16; TEMP 36.6; O2SAT 98
[2023-09-17] MEDS: LACTATED RINGERS 1000ML 1,000 ML 100 ML IV ×2 (02:49→22:11)
[2023-09-17 04:00] VITALS: BMI 34.2
--- NOTE | 2023-09-17 04:36 | PC.NURSE ---
Patient alert and oriented x4 throughout shift. Tolerating room air well when she is awake. When patient is sleeping, O2 stats have been dropping down to 85-89%. Patient placed on 2L NC while sleeping to maintain stats above 90%. No nausea or vomiting reported by patient. Bowel sounds active x4 quadrants and patient states she has began passing gas. Patient reported headache earlier in shift, relieved with PRN toradol administered per APR. Patient tolerating ice chips well. VSS. Call light within reach.
[2023-09-17 06:29] VITALS: BP 152/82; PULSE 87; RESP 16; TEMP 36.4; O2SAT 95
[2023-09-17 06:52] LABS: Basophils % 0.4 % (0.1-2.0); Eosinophils # 0.1 K/mm3 (0.0-0.4); Hematocrit 35.2 % (37.0-47.0); Hemoglobin 11.8 g/dL (12.2-16.2); Lymphocytes # 1.7 K/mm3 (0.7-4.5); Lymphocytes % 29.2 % (10-50); Mean Corpuscular HGB Conc 33.5 g/dL (31.8-35.4); Mean Corpuscular Hemoglobin 31.2 pg (27.0-31.2); Mean Corpuscular Volume 93.1 fl (81-99); Mean Platelet Volume 8.7 fl (7.4-10.4); Monocytes # 0.3 K/mm3 (0.1-1.0); Monocytes % 4.8 % (1.7-9.3); Neutrophils # 3.8 K/mm3 (1.8-7.8); Neutrophils % 64.7 % (37.0-80.0); Platelet Count 173 K/mm3 (142-424); Red Blood Count 3.78 M/mm3 (4.20-5.40); Red Cell Distribution Width 14.4 % (11.5-17.5); White Blood Count 5.8 K/mm3 (4.8-10.8)
[2023-09-17 07:08] LABS: Anion Gap 6.6 mEq/L (5-15); Blood Urea Nitrogen 12 mg/dl (7-17); Calcium 8.6 mg/dl (8.4-10.2); Carbon Dioxide 27 mmol/L (22.0-30.0); Chloride 109 mmol/L (98-107); Creatinine Clearance Estimated 84 mL/min (50-200); Estimated Glomerular Filt Rate 123 ml/min (>60); GFR (African American) 149 ML/MIN (>60); Glucose 101 mg/dl (74-100); Potassium 3.6 mmoL/L (3.5-5.1); Sodium 139 mmol/L (136-145)
--- NOTE | 2023-09-17 07:46 | EXP.SURG.PN ---
Subjective Narrative: Patient without complaints other than incisional soreness. Passed some gas. Exam Data for Last 24 hours Vital signs and Labs for Last 24 Hours: Temp Pulse Resp BP Pulse Ox O2 Del Method O2 Flow Rate 97.5 F L 87 16 152/82 H 95 Nasal Cannula 2 09/17/23 06:29 09/17/23 06:29 09/17/23 06:29 09/17/23 06:29 09/17/23 06:29 09/17/23 07:00 09/17/23 07:00 Laboratory Results - last 24 hr 09/17/23 06:15: WBC 5.8 D, RBC 3.78 L, Hgb 11.8 L, Hct 35.2 L, MCV 93.1, MCH 31.2, MCHC 33.5, RDW 14.4, Plt Count 173, MPV 8.7, Neut % (Auto) 64.7, Lymph % (Auto) 29.2, [place] % (Auto) 4.8, Eos % (Auto) 1.0, Baso % (Auto) 0.4, Neut # (Auto) 3.8, Lymph # (Auto) 1.7, [place] # (Auto) 0.3, Eos # (Auto) 0.1, Baso # (Auto) 0.0, Sodium 139, Potassium 3.6, Chloride 109 H, Carbon Dioxide 27, Anion Gap 6.6, BUN 12, Creatinine 0.50 L, Estimated Creat Clear 84, Estimated GFR 123, Est GFR ( Amer) 149 D, Glucose 101 H, Calcium 8.6 I & O for Last 24 hours: Intake & Output 09/14/23 09/15/23 09/16/23 09/17/23 11:59 11:59 11:59 11:59 Intake Total 2264 / 2264 777 / 777 Output Total 1000 / 1000 0 / 0 Balance 1264 / 1264 777 / 777 Weight 211 lb 6.4 oz 212 lb 12.8 oz *Routine Abdominal Exam Abdominal: Present soft Comments: Mildly distended. Progress Note: A&P Assessment and plan (1) Bowel perforation: Problem details: Perforation from swallowed foreign body. The patient has free fluid and a small amount of free air. Status: Acute Assessment and plan: Sips of clears. Ambulate.
[2023-09-17 07:56] VITALS: PULSE 82; RESP 18; TEMP 36.4; O2SAT 94
[2023-09-17] MEDS: ENOXAPARIN 40MG/0.4ML SYRINGE 40 MG SQ (09:28)
[2023-09-17] MEDS: KETOROLAC 30MG/ML VIAL 15 MG IV (14:18)
--- NOTE | 2023-09-17 14:54 | PC.NURSE ---
PT IS RESTING IN BED. ALERT AND ORIENTED X4. PT HAS AMBULATED SEVERAL TIMES IN THE NEVES THIS SHIFT. PASSING FLATUS. SURGICAL SITES NOTED TO ABDOMEN OPEN TO AIR. PT TOLERATED A SHOWER THIS SHIFT. TOLERATING SIPS OF CLEARS. MEDICATED PER MAR FOR HEADACHE. WILL CONTINUE TO MONITOR.
[2023-09-17 16:00] VITALS: BP 155/81; PULSE 80; RESP 19; TEMP 36.3; O2SAT 97
[2023-09-17 20:00] VITALS: BP 161/93; PULSE 76; RESP 18; TEMP 36.6; O2SAT 94; O2SAT 97
[2023-09-17] MEDS: PANTOPRAZOLE 40MG VIAL 40 MG IV (20:15)
[2023-09-18 04:00] VITALS: BP 158/96; PULSE 83; RESP 17; TEMP 36.7; O2SAT 94; BMI 33.7
[2023-09-18 08:00] VITALS: BP 161/92; PULSE 75; RESP 18; TEMP 36.4; O2SAT 93
--- NOTE | 2023-09-18 08:23 | EXP.SURG.PN ---
Subjective Patient reports: no new complaints and feels better Narrative: Ambulating in hallway without difficulty Exam Data for Last 24 hours Vital signs and Labs for Last 24 Hours: Temp Pulse Resp BP Pulse Ox O2 Del Method O2 Flow Rate 97.6 F 75 18 161/92 H 93 L Room Air 2 09/18/23 08:00 09/18/23 08:00 09/18/23 08:00 09/18/23 08:00 09/18/23 08:00 09/18/23 08:00 09/17/23 07:48 I & O for Last 24 hours: Intake & Output 09/15/23 09/16/23 09/17/23 09/18/23 11:59 11:59 11:59 11:59 Intake Total 2264 / 2264 777 / 777 2313 / 2313 Output Total 1000 / 1000 0 / 0 0 / 0 Balance 1264 / 1264 777 / 777 2313 / 2313 Weight 211 lb 6.4 oz 212 lb 12.8 oz Constitutional Constitutional: no acute distress *Routine Respiratory Exam Respiratory: Absent respiratory distress *Routine Cardiovascular Exam Cardiovascular: Absent tachycardia *Routine Abdominal Exam Abdominal: Present soft Comments: Incisions healing without evidence of infection Progress Note: A&P Assessment and plan (1) Bowel perforation: Problem details: Perforation from swallowed foreign body. The patient has free fluid and a small amount of free air. Status: Acute Assessment and plan: Overall, doing very well status post laparoscopic small bowel resection. Continue to slowly advance diet Hep-Lock IV when tolerating clears Continue to increase ambulation Likely discharge home tomorrow
[2023-09-18] MEDS: ENOXAPARIN 40MG/0.4ML SYRINGE 40 MG SQ (08:31)
--- NOTE | 2023-09-18 15:00 | PC.NURSE ---
Addendum entered by Yu Mireles RN 09/18/23 18:37: PT TOLERATED FULL LIQUIDS FOR SUPPER Original Note: PT IS RESTING IN BED. ALERT AND ORIENTED X4. TOLERATING CLEAR LIQUIDS. AMBULATES FREQUENTLY IN THE NEVES. ABDOMEN SOFT/TENDER WITH SURGICAL SITES OPEN TO AIR. HYPOACTIVE BOWEL SOUNDS. PASSING FLATUS. LUNG SOUNDS CLEAR. VSS. WILL CONTINUE TO MONITOR.
[2023-09-18 16:00] VITALS: BP 174/84; PULSE 87; RESP 18; TEMP 36.8; O2SAT 97
[2023-09-18 19:27] VITALS: BP 159/91; PULSE 96; RESP 16; TEMP 36.6; O2SAT 96
[2023-09-18] MEDS: PANTOPRAZOLE 40MG VIAL 40 MG IV (20:08)
[2023-09-18] MEDS: SODIUM CHLORIDE 0.9% 10ML VIAL 10 ML IV (20:08)
[2023-09-19 04:00] VITALS: BP 155/97; PULSE 89; RESP 16; TEMP 36.8; O2SAT 94; BMI 33.7
--- NOTE | 2023-09-19 04:35 | PC.NURSE ---
Pt is A&Ox4. Ambulated in the hallway several times at beginning of shift. No complaints. Independent in room. Abdomen tender and soft, bowel sounds active, lap incisions open to air, clean and dry. No BM this shift. Call light in reach.
[2023-09-19] MEDS: KETOROLAC 30MG/ML VIAL 15 MG IV (05:01)
--- NOTE | 2023-09-19 06:29 | EXP.SURG.PN ---
Subjective Patient reports: no new complaints, feels better and flatus Exam Data for Last 24 hours Vital signs and Labs for Last 24 Hours: Temp Pulse Resp BP Pulse Ox O2 Del Method O2 Flow Rate 98.2 F 89 16 155/97 H 94 L Room Air 2 09/19/23 04:00 09/19/23 04:00 09/19/23 04:00 09/19/23 04:00 09/19/23 04:00 09/19/23 05:00 09/17/23 07:48 I & O for Last 24 hours: Intake & Output 09/16/23 09/17/23 09/18/23 09/19/23 11:59 11:59 11:59 11:59 Intake Total 2264 / 2264 777 / 777 2313 / 2313 1500 / 1500 Output Total 1000 / 1000 0 / 0 0 / 0 0 / 0 Balance 1264 / 1264 777 / 777 2313 / 2313 1500 / 1500 Weight 211 lb 6.4 oz 212 lb 12.8 oz 210 lb 4 oz 210 lb 4.007 oz Constitutional Constitutional: no acute distress *Routine Respiratory Exam Respiratory: Absent respiratory distress *Routine Cardiovascular Exam Cardiovascular: Absent tachycardia *Routine Abdominal Exam Abdominal: Present soft Progress Note: A&P Assessment and plan (1) Bowel perforation: Problem details: Perforation from swallowed foreign body. The patient has free fluid and a small amount of free air. Status: Acute Assessment and plan: Overall, doing very well status post laparoscopic small bowel resection Discharge home with outpatient follow-up
--- NOTE | 2023-09-19 06:30 | EXP.DC.SUM ---
General Admission date:: 09/16/23 Discharge date: 09/19/23 HPI HPI HPI: Ira Flores is a 68-year-old lady with PMH significant for diverticulitis who presented to the emergency room this evening with abdominal pain. Pt states for the last 24 hours. She states that about a week ago she was eating a sandwich and dislodged her permanent lower retainer. She swallowed it and thought it would pass with time. She developed abdominal pain today that continued to worsen throughout the day. States is felt like a prior episode of her diverticulitis flare up. Has not had any prior abdominal surgeries. Denies any fever, cough, chest pain, shortness of breath, bowel or bladder dysfunction. No bloody stools/melena. No focal neuro deficits. Denies any swelling in her legs or feet. Does not take any blood thinners. Lab work in the ER was essentially unremarkable, hematologic labs are largely nonactionable, no leukocytosis, no JEREMY or critical electrolyte abnormality. CT of the abdomen pelvis showed 2.5 cm linear metallic foreign body within the loop of distal small bowel, foreign body appears to penetrate through the wall of small bowel without adjacent extraluminal air. She was given zosyn and general surgery was consulted. She was taken to the OR for an ex lap. Hospital medicine was asked to consult for medical management. Hospital Course Hospital Course Hospital Course: The patient underwent laparoscopic partial small bowel resection (Dr. Barnes) on 09/16/2023. Please see operative report for detail. Postoperatively, she convalesced well. She had minimal postoperative ileus which quickly resolved. Her diet was advanced and she was deemed appropriate for discharge on the morning of 09/19/2023. Condition at discharge: At the time of discharge the patient was afebrile with stable normal vital signs. She was ambulating without difficulty and tolerating advancement of her diet. Exam Data for Last 24 hours Vital signs and Labs for Last 24 Hours: Temp Pulse Resp BP Pulse Ox O2 Del Method O2 Flow Rate 98.2 F 89 16 155/97 H 94 L Room Air 2 09/19/23 04:00 09/19/23 04:00 09/19/23 04:00 09/19/23 04:00 09/19/23 04:00 09/19/23 05:00 09/17/23 07:48 I & O for Last 24 hours: Intake & Output 07/22/24 07/23/24 07/24/24 07/25/24 11:59 11:59 11:59 11:59 Intake Total 2264 / 2264 777 / 777 2313 / 2313 1500 / 1500 Output Total 1000 / 1000 0 / 0 0 / 0 0 / 0 Balance 1264 / 1264 777 / 777 2313 / 2313 1500 / 1500 Weight 211 lb 6.4 oz 212 lb 12.8 oz 210 lb 4 oz 210 lb 4.007 oz Constitutional Constitutional: no acute distress *Routine HEENT Exam Head: Present normocephalic Eye: Present EOMI ENT: Present mucous membranes moist *Routine Neck Exam Neck: Present full ROM Routine Chest/Breast/Axilla Exam Chest wall: Absent tenderness *Routine Respiratory Exam Respiratory: Absent respiratory distress *Routine Cardiovascular Exam Cardiovascular: Absent tachycardia *Routine Abdominal Exam Abdominal: Present soft *Routine Rectal Exam Patient deferred: visual exam and digital exam *Routine Exam Patient deferred: external exam *Routine Extremities Exam Extremities: Present full ROM Routine Back/Spine/Pelvis Exam Back/Spine: Present full ROM *Routine Skin Exam Skin: Absent erythema *Routine Neurological Exam Neurological: Present alert and oriented X3 Routine Psychiatric Exam Psychiatric: Present normal affect DS: Diagnosis Discharge Diagnosis (1) Bowel perforation: Status: Acute Code(s): K63.1 - Perforation of intestine (nontraumatic) Problem details: Perforation from swallowed foreign body. The patient has free fluid and a small amount of free air. Meds Home Medications and Allergies Home Medications ?Medication ?Instructions ?Recorded ?Confirmed ?Type No Known Home Medications 09/16/23 09/16/23 History New Prescriptions to Start Prescriptions: Allergies Allergy/AdvReac Type Severity Reaction Status Date / Time nitrofurantoin Allergy Swelling/Ra Verified 09/15/23 19:36 [From Macrobid] sh Penicillins Allergy Swelling Verified 09/15/23 19:36 Rash Sulfa (Sulfonamide Allergy Swelling/Ra Verified 09/15/23 19:36 Antibiotics) Discharge Plan Disposition Patient Disposition: Home, Self-Care Discharge Order Discharge Orders: Discharge Order (Routine); Ordered 09/19/23 Ordered By: Sixto Stallings Follow up Plan Follow up with: Daquan Bellamy MD [Primary Care Provider] - See instructions Sixto Stallings MD [Staff Physician] - 2 weeks Prescriptions/Medication Reconciliation: Continued No Known Home Medications Problem Reconciliation Problems Reviewed?: Yes Patient Discharge Instructions ACTIVITY: Ambulate as tolerated and No heavy lifting DIET: advance to your usual diet Patient Instructions: DI for Exploratory Laparotomy, DI for Small Bowel Resection, DI for Surgical Site Infection, DI for Skin Abscess Print Language: Palauan Providers Primary Care Provider: Daquan Bellamy Admit Provider: Anthony Barnes Attending Provider: Anthony Barnes
--- NOTE | 2023-09-20 12:50 | CARE MANAGER ---
Spoke with patient via phone to discuss recent discharge. 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 She was aware of scheduled f/u appts and voiced no concerns at time of call.
== END 2023-09-19 08:47 | disposition home or self-care (01) | DRG 331 ==
LOC: ER 19:21 → SDC 22:18 → 2ND 09-16 00:43
PROVIDERS: Admitting Provider Student in an Organized Health Care Education/Training Program; Emergency Provider Emergency Medicine; PCP Family Medicine; Visit Provider Student in an Organized Health Care Education/Training Program
DX: K63.1 Perforation of intestine (nontraumatic) (principal)
CPT/HCPCS: 44120; 74177; 80048; 80053; 81001; 83605; 85025; 99251; 99291; J3490; C9144; J1100; J1650; J1885; J2250; J2405; J2550; J3010; J7120; Q9967

== ENCOUNTER 2023-11-17 14:26 | Emergency (ER) | payer OTHER, MEDICARE, SELFPAY ==
--- NOTE | 2023-11-17 14:45 | XR_ITS ---
PROCEDURE INFORMATION: Exam: XR Left Ankle Exam date and time: 11/17/2023 2:46 PM Age: 68 years old Clinical indication: Injury or trauma; Fall; Blunt trauma; Ankle; Left TECHNIQUE: Imaging protocol: Radiologic exam of the left ankle. Views: 3 or more views. COMPARISON: CR XR TIBIA FIBULA LT 2V 11/17/2023 2:44 PM FINDINGS: Bones/joints: No acute fracture or dislocation. Small plantar calcaneal bone spur. Soft tissues: Dorsal soft tissue swelling. IMPRESSION: No acute fracture or dislocation.
--- NOTE | 2023-11-17 14:45 | XR_ITS ---
PROCEDURE INFORMATION: Exam: XR Right Tibia and Fibula Exam date and time: 11/17/2023 2:50 PM Age: 68 years old Clinical indication: Injury or trauma; Fall; Blunt trauma; Lower leg; Right TECHNIQUE: Imaging protocol: Radiologic exam of the right tibia and fibula. Views: 2 views. COMPARISON: No relevant prior studies available. FINDINGS: Bones/joints: Acute oblique fracture of the proximal fibula diaphysis. Mild osteoarthrosis of the knee. Soft tissues: Normal. IMPRESSION: Acute oblique fracture of the proximal fibula diaphysis.
--- NOTE | 2023-11-17 14:45 | XR_ITS ---
PROCEDURE INFORMATION: Exam: XR Left Foot Exam date and time: 11/17/2023 2:42 PM Age: 68 years old Clinical indication: Injury or trauma; Fall; Blunt trauma; Foot; Left TECHNIQUE: Imaging protocol: Radiologic exam of the left foot. Views: 3 or more views. COMPARISON: No relevant prior studies available. FINDINGS: Bones/joints: No acute fracture or dislocation. Small plantar calcaneal bone spur. Soft tissues: Dorsal soft tissue swelling. IMPRESSION: No acute fracture or dislocation.
--- NOTE | 2023-11-17 14:45 | XR_ITS ---
PROCEDURE INFORMATION: Exam: XR Left Tibia and Fibula Exam date and time: 11/17/2023 2:44 PM Age: 68 years old Clinical indication: Injury or trauma; Fall; Blunt trauma; Lower leg; Left TECHNIQUE: Imaging protocol: Radiologic exam of the left tibia and fibula. Views: 2 views. COMPARISON: CR XR FOOT LT MIN 3V 11/17/2023 2:42 PM FINDINGS: Bones/joints: No acute fracture or dislocation. Mild osteoarthritis of the knee. Soft tissues: Normal. IMPRESSION: No acute fracture or dislocation.
[2023-11-17 14:47] VITALS: BP 166/88; PULSE 93; RESP 16; TEMP 36.8; O2SAT 97; BMI 30.7
--- NOTE | 2023-11-17 15:07 | EXP.UTC ---
Discharge Plan Disposition Patient Disposition: Home, Self-Care Condition: Good Prescriptions Prescriptions: New ibuprofen [IBU] 800 mg tablet 800 mg PO Q8HP PRN (Reason: Moderate Pain) Qty: 30 0RF No Action hydrocodone-acetaminophen 5-325 mg tablet 1 tab PO Q6H PRN (Reason: post-op pain) Qty: 9 0RF Referrals Follow up/Referrals: Daquan Bellamy MD [Primary Care Provider] - See instructions Jose Piña DO [Staff Physician] - See instructions Activity Restrictions/Add. Instructions Additional Instructions/Restrictions: Rest the extremities, apply ice for 15 minutes as tolerated three or four times per day, Elevate the extremities as tolerated while you are resting. Take ibuprofen for pain. I sent in a prescription to your pharmacy. Follow up with Dr. Piña (orthopedics). I called him and put in a referral but you need to call his office and schedule an appointment. Call his office in the morning to set up a follow up appointment. His office phone number will be on this paper work. Follow up with your regular doctor. GO TO THE ER FOR ANY WORSENING SYMPTOMS Clinical Impressions Clinical Impression: Closed fracture of fibula, proximal, right, Left ankle sprain, Sprain of left foot Instructions Patient Instructions: DI for Ankle Sprain, DI for Foot Sprain, How to Use a Walking Boot, Fibula Shaft Fracture Print Language Print Language: Luxembourgish Discharge ED Provider: Bashir Lim [facility] General Stated complaint: ao rolled ankle and R leg pain Mode of Arrival: Wheelchair Source of Information: Patient Limitations: No Limitations Time Seen by Provider: 11/17/23 15:06 Description of Symptoms (Recalled from Triage Doc. by RN): Reports falling and injuring her left ankle and foot. Also complains of right calf pain. HEENT Symptoms (Recalled from RN notes): No Resp Symptoms (Recalled from RN notes): No Skin Symptoms (Recalled from RN notes): No MS Symptoms (Recalled from RN notes): Yes Functional Status (Recalled from RN notes): wnl History of Present Illness Provider Complaint: She states that she fell earlier today. She is having right lower leg pain and left foot and ankle pain. She denies other injury. Related Data Previous Rx's ?Medication ?Instructions ?Recorded hydrocodone 5 mg-acetaminophen 325 1 tab PO Q6H PRN post-op pain #9 09/19/23 mg tablet tabs ibuprofen 800 mg tablet (IBU) 800 mg PO Q8HP PRN Moderate Pain 11/17/23 #30 tabs Allergies Allergy/AdvReac Type Severity Reaction Status Date / Time nitrofurantoin Allergy Swelling/Ra Verified 09/15/23 19:36 [From Macrobid] Penicillins Allergy Swelling Verified 09/15/23 19:36 Rash Sulfa (Sulfonamide Allergy Swelling/Ra Verified 09/15/23 19:36 Antibiotics) Worker's Comp Is this a Worker's Comp case?: No [facility] Disclaimer: The information contained in this section may have been updated after the patient was seen, as this information can be updated by other users. Social History (Updated 09/16/23 @ 00:55 by Chelsey Gonzalez CRNA) Smoking Status: Never smoker alcohol intake: former substance use type: denies use current occupational status: employed Travel in the last 8 weeks: None ROS Obtained: Yes All systems reviewed & no additional complaints except as documented Constitutional Constitutional: Denies chills and Denies fever(s) Eyes Eyes: Denies eye discharge ENT Ears, Nose, Mouth, and Throat: Denies dizziness, Denies otalgia and Denies sore throat Cardiovascular Cardiovascular: Denies chest pain Respiratory Respiratory: Denies shortness of breath, Denies chest congestion, Denies cough, Denies stridor and Denies wheezing Gastrointestinal Gastrointestingal: Denies nausea or vomiting Musculoskeletal Musculoskeletal: Reports as per HPI Integumentary/Breasts Skin/Breast: Denies rash Neurologic Neurologic: Denies dizziness and Denies paresthesias Allergic/Immunologic Allergic/Immunologic: Denies wheezing Physical Exam General General appearance: alert and in no apparent distress Head Head exam: atraumatic, normocephalic and normal inspection Eye Eye exam: Present normal appearance, PERRL and EOMI ENT ENT exam: Present normal exam, normal oropharynx, mucous membranes moist, TM's normal bilaterally and normal external ear exam Neck Neck exam: Present normal inspection, full ROM and trachea midline; Absent meningismus or lymphadenopathy Chest Chest inspection: Present normal inspection and symmetric chest wall rise; Absent tenderness Respiratory Respiratory exam: Present normal lung sounds bilaterally; Absent respiratory distress Cardiovascular Cardiovascular exam: Present regular rate and normal rhythm; Absent JVD Abdominal Exam Abdominal exam: Present soft and normal bowel sounds; Absent distention, tenderness or guarding Extremities Exam Extremities exam: Present normal capillary refill; Absent calf tenderness Expanded Lower Extremity Exam Right: Hip/Pelvis exam: Present normal inspection and full ROM; Absent tenderness Upper leg exam: Present normal inspection and full ROM; Absent tenderness Knee exam: Present normal inspection, full ROM and knee extension intact; Absent tenderness, swelling, abrasion, effusion, anterior drawer sign, posterior draw sign, pain with valgus, laxity with valgus, pain with varus or laxity with varus Lower leg exam: Present tenderness, swelling and Achilles tendon intact; Absent full ROM, abrasion, laceration, ecchymosis, deformity, crepitus, dislocation, erythema, palpable cord or Homans' sign Ankle exam: Present normal inspection and full ROM; Absent tenderness, swelling, abrasion, laceration, ecchymosis, deformity, crepitus, dislocation, erythema, tenderness over talofibular lig or anterior draw sign Foot/toe exam: Present normal inspection and full ROM; Absent tenderness, swelling, abrasion, laceration, ecchymosis, deformity, crepitus, dislocation, erythema, amputation, puncture wound, foreign body, calcaneal tenderness, tenderness at base of 5th metatarsal, nail avulsion or subungual hematoma Neurovascular/Tendon exam: Present normal capillary refill, normal 2-point discrimination and normal fine/light touch; Absent pulse deficit, motor deficit, sensory deficit, tendon deficit, extremity cold to touch or pallor Gait: not tested/not observed Back Exam Back exam: Present normal inspection; Absent tenderness Neurological Exam Neurological exam: Present alert and oriented X3 Psychiatric Psychiatric exam: Present normal affect and normal mood Skin Skin exam: Present warm, dry, intact and normal color Lymphatic Lymphatic Findings: no adenopathy Medical Decision Making Medical Records Medical records reviewed: No I reviewed the patient's medical records. Screening: Per USPSTF and CDC recommendations, given the prevalence of disease in our region, it is our hospital?s policy to screen for HIV and viral Hepatitis for all patients aged 18 and over and those with ongoing risk factors. Mike Inquiry Pt receiving controlled substance: No Vital Signs: 11/17/23 14:47 Temperature 98.2 F Temperature Source Oral Pulse Rate [Radial] 93 H Respiratory Rate 16 Blood Pressure [Right Arm] 166/88 H Blood Pressure Mean [Right Arm] 114 Blood Pressure Source [Right Arm] Automatic Cuff Blood Pressure Position [Right Arm] Sitting 02 Sat by Pulse Oximetry 97 Oxygen Delivery Method Room Air Orders (Tests/Meds): ORDERS Category Date Time Status Ankle XR - Left minimum 3 Views [XR ankle LT min 3V] Exams 11/17/23 14:45 Taken Stat XR foot LT min 3V Stat Exams 11/17/23 14:45 Taken XR tibia fibula LT 2V Stat Exams 11/17/23 14:45 Taken XR tibia fibula RT 2V Stat Exams 11/17/23 14:45 Taken Procedures Risk/Benefits of Procedure(s) Were Explained: Yes Orthopedic Splinting/Casting Injury #1: Side: right Lower Extremity Injury Location: lower leg, ankle and foot Lower Extremity Immobilizer: boot orthosis and applied by nurse/dr mcneill Post Cast/Splinting Neuro Status: intact and no change Post Cast/Splinting Vasc Status: intact and no change Injury #2: Side: left Lower Extremity Injury Location: lower leg, ankle and foot Lower Extremity Immobilizer: boot orthosis and applied by nurse/dr mcneill Post Cast/Splinting Neuro Status: intact and no change Post Cast/Splinting Vasc Status: intact and no change
[2023-11-17 16:57] VITALS: BP 166/88; PULSE 93; RESP 16; TEMP 36.8; O2SAT 97
== END 2023-11-17 16:57 | disposition home or self-care (01) ==
PROVIDERS: Emergency Provider Nurse Practitioner Family; PCP Family Medicine
DX: S82.431A Displaced oblique fracture of shaft of right fibula, initial encounter for closed fracture (principal); S93.602A Unspecified sprain of left foot, initial encounter; S93.402A Sprain of unspecified ligament of left ankle, initial encounter; M79.661 Pain in right lower leg; W19.XXXA Unspecified fall, initial encounter
CPT/HCPCS: 73590; 73610; 73630; 99204; 99212; G0463

== ENCOUNTER 2023-12-04 09:25 | Outpatient (CLI) | payer OTHER, MEDICARE, SELFPAY ==
--- NOTE | 2023-12-04 09:29 | XR_ITS ---
FINAL REPORT CLINICAL HISTORY: Right tib fib pain COMPARISON: 11/17/2023 FINDINGS: 2 views of the right tibia/fibula were obtained. There is a nondisplaced fracture of the proximal fibular diaphysis which is stable in appearance. There is no significant callus formation. No other fracture identified. The joint spaces are intact. There is no soft tissue abnormality. IMPRESSION: Stable nondisplaced fibular fracture without significant callus formation. Reviewed, Interpreted and Dictated by Michael Hurst III, MD Transcribed by Beatrice Andino Authenticated and [facility]
--- NOTE | 2023-12-04 09:29 | XR_ITS ---
FINAL REPORT CLINICAL HISTORY: Left foot pain COMPARISON: 11/17/2023 FINDINGS: LEFT FOOT Three views of the left foot demonstrate no acute fracture or dislocation. There is mild degenerative change. A small plantar calcaneal spur is noted. There is a mild chronic calcification superior to the navicular. The soft tissues are unremarkable. IMPRESSION: Mild degenerative change without acute bony abnormality. Reviewed, Interpreted and Dictated by Michael Hurst III, MD Transcribed by Beatrice Andino Authenticated and [facility]
== END 2023-12-04 23:59 | disposition home or self-care (01) ==
LOC: RAD 09:26
PROVIDERS: PCP Family Medicine; Visit Provider Physician Assistant
DX: M79.661 Pain in right lower leg (principal); S82.831A Other fracture of upper and lower end of right fibula, initial encounter for closed fracture; M79.672 Pain in left foot; S93.602A Unspecified sprain of left foot, initial encounter
CPT/HCPCS: 73590; 73630

== ENCOUNTER 2023-12-30 09:35 | Outpatient (CLI) | payer OTHER, MEDICARE, SELFPAY ==
--- NOTE | 2023-12-30 09:39 | XR_ITS ---
FINAL REPORT CLINICAL HISTORY: pain...broke 6 weeks ago COMPARISON: None FINDINGS: RIGHT TIBIA FIBULA There is a subacute fracture of the proximal fibular diaphysis with callus formation. Mild degenerative change of the right knee is present. The joint spaces are intact. There is no soft tissue abnormality. IMPRESSION: Subacute fracture of the proximal fibular diaphysis with callus formation. Reviewed, Interpreted and Dictated by Michael Hurst III, MD Transcribed by Alisha Lloyd Authenticated and [facility]
== END 2023-12-30 23:59 | disposition home or self-care (01) ==
LOC: RAD 09:37
PROVIDERS: PCP Family Medicine; Visit Provider Orthopaedic Surgery
DX: S82.201A Unspecified fracture of shaft of right tibia, initial encounter for closed fracture (principal); S82.401A Unspecified fracture of shaft of right fibula, initial encounter for closed fracture
CPT/HCPCS: 73590

== ENCOUNTER 2024-04-23 08:11 | Outpatient (CLI) | payer OTHER, SELFPAY ==
--- NOTE | 2024-04-23 08:18 | CT_ITS ---
FINAL REPORT TECHNIQUE: CT examination of the abdomen was performed with and without intravenous contrast administration. No oral contrast was administered. Multiplanar reconstructions in the sagittal and coronal planes were performed. This study was performed with techniques to keep radiation doses as low as reasonably achievable (ALARA). Individualized dose reduction techniques using automated exposure control or adjustment of mA and/or kV according to the patient's size were employed. CLINICAL HISTORY: liver lesion f/u COMPARISON: 09/15/2023 FINDINGS: CT ABDOMEN WITH AND WITHOUT CONTRAST: CT examination demonstrates an ovoid lesion in the central liver dome new the inferior vena cava, that exhibits peripheral nodular enhancement. This lesion measures 17 x 10 mm in size, and has an appearance most consistent with a hepatic hemangioma, stable. There is a second lesion in the lateral dome of the liver measuring up to 14 mm in size, not visualized on the delayed images, also favor hemangioma, also unchanged since prior exam. There is a third lesion in the posterior liver dome, 12 mm homogeneously enhancing, stable in size. This lesion is nonspecific but could represent an atypical hemangioma. The gallbladder is unremarkable in appearance. The solid organs are normal. No abnormality of the bowel is noted. The visualized portion of the appendix is unremarkable. IMPRESSION: 3 densities are identified in the liver, 2 of which are most typical of hemangiomas. The third lesion may represent an atypical hemangioma. Recommend continued 6-month follow-up CT with and without contrast to ensure stability. Reviewed, Interpreted and Dictated by Akash Huddleston MD Transcribed by Alisha Lloyd Authenticated and [facility]
[2024-04-23] MEDS: SODIUM CHLORIDE 0.9% 10ML SYR (RAD ONLY) 10 ML IV (09:11)
[2024-04-23] MEDS: IOPAMIDOL-370 (76%);100ML BOTTLE 75 ML IV (09:11)
== END 2024-04-23 23:59 | disposition home or self-care (01) ==
LOC: RAD 08:12
PROVIDERS: PCP Family Medicine; Visit Provider Family Medicine
DX: K76.9 Liver disease, unspecified (principal)
CPT/HCPCS: 74170; Q9967

== ENCOUNTER 2025-01-07 08:06 | Outpatient (CLI) | payer OTHER, SELFPAY ==
--- NOTE | 2025-01-07 08:08 | CT_ITS ---
FINAL REPORT TECHNIQUE: Axial CT images of the abdomen were obtained with IV contrast only. Coronal reformatted images were also obtained. This study was performed with techniques to keep radiation doses as low as reasonably achievable (ALARA). Individualized dose reduction techniques using automated exposure control or adjustment of mA and/or kV according to the patient''s size were employed. CLINICAL HISTORY: f/u LIVER LESION COMPARISON: 04/23/2024 FINDINGS: The lung bases are clear. Hypodense lesions in the liver dome are again noted with mild peripheral enhancement. The more medial lesion measures 13 mm and is unchanged. The more peripheral lesion measures up to 14 mm, unchanged. Rounded homogeneously enhancing lesion in the posterior liver dome measuring 12 mm is also unchanged. No new liver lesions identified. Remaining solid abdominal organs are unremarkable. The bowel is unremarkable. The appendix is normal. There is no evidence of adenopathy. No abnormal fluid collection is seen. No localized inflammatory processes identified. IMPRESSION: Stable liver lesions as above strongly favored to be benign. Recommend 12 month follow-up CT scan. Reviewed, Interpreted and Dictated by Akash Huddleston MD Transcribed by Beatrice Andino Authenticated and [facility]
--- OUTSIDE RECORDS SUMMARY | 2025-01-07 08:08 | XMS_ITS | Clinical Summary ---
Author Organization [facility] yste Address [address] [place] [address] Care Team Providers Care Customer Relations Advisor Name Role Phone Unavailable Primary Care Provider Unavailabl e Social History Tobacco Use Types Packs/Day Years Used Date Smoking Tobacco: Never Assessed Abuse Screen Answer Date Recorded Unsafe at Home or Work/School Not on file Feels Threatened by Someone? Not on file 10/2022 Does Anyone Keep You from Co ntacting Others or Doint Things Outside the Home? Not on file 12/03/2022 Physical Sign of Abuse Present Not on file 1 Housing Stability Answer Date Recorded Current Living Arrangements Not on file 10/2022 Potentially Unsafe Housing Conditions Not on elena e 12/03/2022 Family and Community Support Answer Juan Luis e Recorded Help with Day-to-Day Activities Not on file 12/03/2022 Lonely or Isolated Not on file 12/03/2022 Employment Answer Date Recorded Do you want help finding or keeping work or a nelly b? Not on file 12/03/2022 Disabilities Answer Date Recorded Concentrating, Remembering, or Making Decisions Difficulty Not on file 12/03/2022 Doing Errands Independently Difficulty Not on fi le 12/03/2022 Education Answer Date Recorded Help with school or training? Not on file Preferred Language Not on file 12/03/2022 Comments Unknown Sex and Gender Information Value Date Recorded Sex Assigned at Not on file Legal Sex Female 12:34 PM EDT Gender Identity Not on file Sexual Orientation Not on file Plan of Treatment Health Maintenance Due Date Last Done Comments ANNUAL PHYSICAL 1955 DXA SCAN 1955 HEPATITIS C SCREENING 1957 TDAP/TD VACCINES (1 - Tdap) 1976 COLOGUARD 2002 COLON CANCER SCREENING 5 YEAR SIGMOIDOSCOPY 2002 COLONOSCOPY 2002 [address] CANCER SCREENING 2002 CT COLONOGRAPHY 2002 FECAL OCCULT BLOOD TEST 2002 FIT Testing (1 year) 2002 Pneumococcal Vaccine 50+ (1 of 1 - PCV) 05/30/2007 ZOSTER VACCINE (1 of 2) 05/30/2007 MAMMOGRAM 04/20/2016 04/20/2014 INFLUENZA VACCINE 09/25/2024 COVID-19 Vaccine ( - 2023- season) 2024 Procedures Procedure Name Priority Date/Time Associated Diagnosis Comments MAMMO SCREENING BILATERAL W CAD Routine 04/20/2014 7:56 AM EST from Last 3 Months or Most Recently Relevant to Health Maintenance Results * MAMMOGRAPHY SCREENING BILATERAL (04/20/2014 7:56 AM EST) Anatomical Region Laterality Modality Breast Bilateral Mammography 04/20/2014 7:56 AM EST Narrative 04/20/2014 8:57 AM EST HISTORY: Screening Mammography. Low Dose full field Digital Breast Tomosynthesis examination was performed with 2D and 3D acquisitions. Examination is compared to prior examination dating back to 07/28/2007. Examination is read in conjunction with computer aided detection. FINDINGS: The breasts are heterogeneously dense, which may obscure small masses. No suspicious masses, microcalcifications or areas of architectural distortion are present. IMPRESSION- Negative bilateral mammogram. RECOMMENDATION: Continue annual screening mammography. BI-RADS CATEGORY I, NEGATIVE. CAD was utilized. The standard false-negative rate of mammography is between 10 and 25%. Complex patterns or increased breast density will markedly elevate the false-negative rate of mammography. A letter, in lay terminology, with the results of this exam will be mailed to the patient. Reading RadiologistTaran BROTHERS Releasing RadiologistTaran BROTHERS Released Date Time- 04/20/14 0859 Internet Cafe Manager- Melanie us Bob Bellamy MD [facility] [place] Aydee l Result from Last 3 Months or Most Recently Relevant to Health Maintenance
--- OUTSIDE RECORDS SUMMARY | 2025-01-07 08:08 | XMS_ITS | Clinical Summary ---
Author Organization [facility] Address [address] [place] [address] Phone Care Team Providers Care Back Tufter Name Role Phone Bob Bellamy MD Primary Care Provider [phone] Allergies Active Allergy Reactions Criticality Noted Date Comments Nitrofurantoin Macrocrystalline Rash 04/2010 Penicillins Rash 07/28/2010 Sulfa (Sulfonamide Antibiotics) Rash 04/2010 Medications multivitamin capsule Take 1 Cap by mouth daily. Active VITAMIN E, BULK, MISC by Misc.(Non-Dr ug; Combo Route) route daily. Active lisinopril (PRINIVIL;ZESTRI L) 10 mg tablet Take by mouth daily. Active NAPROXEN SODIUM (ALEVE ORAL) Take 2 Tabs by mouth 2 times daily as needed. Active ERGOCALCIFEROL, VITAMIN D2, (VITAMIN D ORAL) Take by mouth daily. Active CALCIUM CARBONATE/VITAMI N D3 (CALCIUM + D ORAL) Take by mouth before breakfast. Active LORATADINE (CLARITIN ORAL) Take by mouth before breakfast. Active mometasone (NASONEX) 50 mcg/Actuation nasal spray 2 Sprays by Nasal route daily. Active OMEGA-3 FATTY ACIDS (FISH OIL CONCENTRATE ORAL) Take by mouth before breakfast. Active FLAXSEED OIL ORAL Take by mouth before breakfast. Active Armodafinil (NUVIGIL) 150 mg Tab Take 1 Tab by mouth daily. 30 Tab 5 08/11/2013 Active sodium oxybate (XYREM) 500 mg/mL Oral Solution First dose: Take 3.0 grams po diluted in 1/4 cup of water at bedtime. Second dose: Then take 3.0 grams po diluted in 1/4 cup of water 2 1/2 to 4 hours later. 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/31/2011 KALANI (obstructive sleep apnea) 10/31/2011 Surgical History Surgery Date Site/Laterality Comments EYE SURGERY Lasik LAPAROSCOPY for endometriosis Medical History Medical History Date Comments Hypertension Unspecified sleep apnea moderate wears a mouth piece Arthritis Osteoarthritis Postoperative nausea and vomiting Motion sickness Social History Tobacco Use Types Packs/Day Years Used Date Smoking Tobacco: Former Cigarettes Q uit: 02/25/1982 Comments No Sex and Gender Information Value Date Recorded Sex Assigned at Not on file Legal Sex Female 9:04 PM EDT Gender Identity Not on file Sexual Orientation Not on file Last Filed Vital Signs Vital Sign Reading Time Taken Comments Blood Pressure 118/78 08/11/2013 3:33 PM EDT Pulse 79 08/11/2013 3:33 PM EDT Temperature 36.4 C (97.6 F) 08/25/2010 11:30 AM EDT Respiratory Rate 18 08/25/2010 12:3 0 PM EDT Oxygen Saturation 97% 08/25/2010 12: 30 PM EDT Inhaled Oxygen Concentration - - Weight 69.8 kg (153 lb 12.8 oz) 08/11/2013 3:33 PM EDT Height 167.6 cm (5' 6 ) 08/11/2013 3:33 PM EDT Body Mass Index 24.82 08/11/2013 3:33 PM EDT Plan of Treatment Health Maintenance Due Date Last Done Comments Annual Wellness Exam 1960 Hepatitis C Screening 05/30/1975 DTaP/TDaP/Td (1 - Tdap) 1976 Breast Cancer Screening 1997 Cologuard 2002 Colon Cancer Screening 2002 Colonoscopy 2002 FIT 2002 Sigmoidoscopy 2002 Virtual Colonography 2002 Pneumococcal Vaccine 50+ (1 of 1 - PCV) 05/30/2007 Zoster (1 of 2) 05/30/2007 Bone Density Screening 2022 COVID-19 Vaccine (1 - 2024-2 6 season) 2024 Influenza Vaccine (#1) 2024 Hepatitis B Vaccine Aged Out No longe r eligible based on patient's age to complete this topic Meningococcal B Vaccine Aged Out No l onger eligible based on patient's age to complete this topic Insurance PPO Care Teams Back Tufter Relationship Specialty Start Date End Date Bob Bellamy MD [address] [place] [address] PCP - General 07/27/10
[2025-01-07] MEDS: IOPAMIDOL-370 (76%);100ML BOTTLE 75 ML IV (08:38)
[2025-01-07] MEDS: SODIUM CHLORIDE 0.9% 10ML SYR (RAD ONLY) 10 ML IV (08:38)
== END 2025-01-07 23:59 | disposition home or self-care (01) ==
LOC: RAD 08:07
PROVIDERS: PCP Family Medicine; Visit Provider Family Medicine
DX: K76.9 Liver disease, unspecified (principal)
CPT/HCPCS: 74160; Q9967